=== PATIENT | female | born 1960 | race Caucasian/White ===

== ENCOUNTER 2018-01-05 10:28 | Day surgery (SDC) | payer OTHER ==
[2018-01-05] MEDS: LIDOCAINE 1% (MPF) 30 ML INJ
[2018-01-05] MEDS: POLYMYXIN/BACITRACIN 1L IRRIG
[2018-01-05] MEDS: BUPIVACAINE 0.5% (SDV) 30 ML INJ
[2018-01-05] MEDS ORDERED: MIDAZOLAM 1 MG/ML 2 ML INJ (11:39)
[2018-01-05] MEDS ORDERED: LIDOCAINE 2% (SDV) 5 ML INJ (13:08)
[2018-01-05] MEDS ORDERED: GLYCOPYRROLATE 0.4 MG INJ (13:08)
[2018-01-05] MEDS ORDERED: CEFAZOLIN 1 GM INJ (13:08)
[2018-01-05] MEDS ORDERED: ROCURONIUM 50 MG INJ (13:08)
[2018-01-05] MEDS ORDERED: PROPOFOL 20 ML (13:08)
[2018-01-05] MEDS ORDERED: NEOSTIGMINE 3 MG/3 ML SYRINGE (13:08)
[2018-01-05] MEDS ORDERED: ONDANSETRON 4 MG INJ (13:09)
[2018-01-05] MEDS ORDERED: ROPIVACAINE 0.5 % 30 ML VIAL (13:11)
[2018-01-05] MEDS ORDERED: METOCLOPRAMIDE 10 MG INJ IV (14:00)
[2018-01-05] MEDS ORDERED: FENTAnyl 50 MCG/ML VIAL IV (14:00)
[2018-01-05] MEDS ORDERED: NALOXONE (0.4 MG/ML) INJ IV (14:00)
[2018-01-05] MEDS ORDERED: hydrALAzine 20 MG INJ IV (14:00)
[2018-01-05] MEDS ORDERED: DIPHENHYDRAMINE 50 MG INJ IV (14:00)
[2018-01-05] MEDS ORDERED: LABETALOL HCL 20MG INJ IV (14:00)
[2018-01-05] MEDS ORDERED: HYDROmorphONE (0.2 MG/ML) 10ML SYG IV (14:00)
[2018-01-05] MEDS ORDERED: MEPERIDINE 25 MG INJ IV (14:00)
[2018-01-05] MEDS ORDERED: ONDANSETRON 4 MG INJ IV (14:00)
[2018-01-05] MEDS: HYDROmorphONE (0.2 MG/ML) 10ML SYG IV (14:13)
== END 2018-01-05 15:50 | disposition home or self-care (01) ==
LOC: SDS 10:28
DX: S52.571D Other intraarticular fracture of lower end of right radius, subsequent encounter for closed fracture with routine healing (principal); X58.XXXD Exposure to other specified factors, subsequent encounter; G56.01 Carpal tunnel syndrome, right upper limb; E78.5 Hyperlipidemia, unspecified
CPT/HCPCS: 25609; 73090-RT